=== PATIENT | female | born 1950 | race Caucasian/White ===

== ENCOUNTER 2016-07-08 17:34 | Observation (INO) | payer MEDICARE, BC ==
[~2016-07-08] VITALS: Ht 175.3 cm; Wt 88.8 kg
[~2016-07-08 17:34] MED LIST: ABIL15TA2 PO; ALBU8I INH; AMBI5TAB PO; ARIP1TAB11 PO; ASPI1TAB7 PO; ASPI81 PO; CALC250 PO; CALTTAB PO; CLON.5 PO; ESTR.3 PO; IMOD2TAB PO; LACT PO; LACTCAP7 PO; LEVEMIR SQ; LEXA10TA PO; LEXA20TA PO; LORA-474 PO; LORA1TAB PO; MAXZ25 PO; OMEP40CA2 PO; PRAV80 PO; PROT40TA PO; SIMV40 PO; SITA100 PO; VITATAB11 PO; ZOLP1TAB32 PO
[2016-07-08 17:43] VITALS: BP 136/81; PULSE 82; RESP 16; TEMP 96; O2SAT 95
[2016-07-08] MEDS ORDERED: LORA-474 PO (18:07)
[2016-07-08] MEDS ORDERED: LEVEMIR SQ (18:07)
[2016-07-08] MEDS ORDERED: ACTO15TA11 PO (18:07)
[2016-07-08] MEDS ORDERED: LEXA5TAB PO (18:07)
[2016-07-08] MEDS ORDERED: SITA50 PO (18:07)
[2016-07-08] MEDS ORDERED: PRED5PAK PO (18:07)
[2016-07-08] MEDS ORDERED: ZITHTAB PO (18:07)
[2016-07-08] MEDS ORDERED: ABIL15TA2 PO (18:07)
[2016-07-08] MEDS ORDERED: VENTAER INH (18:07)
[2016-07-08] MEDS ORDERED: ZOCO40TA PO (18:07)
[2016-07-08] MEDS ORDERED: AMOX875T PO (18:07)
--- NOTE | 2016-07-08 18:07 | PD ---
HPI . Pneumonia Chief Complaint: Respiratory Symptoms Time Seen by Provider: 17:52 Travel History International Travel<30 days: No Contact w/Intl Traveler<30days: No Traveled to known affect area: No History of Present Illness HPI Patient presents with chief complaint of pneumonia. Patient reports that she's been sick for about a week with a cough. She went to urgent care today and had a chest x-ray. She states that they called her a little while later and told her that she needed to come to the emergency department because she had pneumonia in her right lower lobe. Patient denies fever. She reports sputum production of clear sputum. She denies any dyspnea. PFSH Past Medical History Hx Anticoagulant Therapy: Yes (asa 81ng) Asthma: Yes Anxiety: Yes Depression: Yes Cancer: No Cardiovascular Problems: Yes (htn on meds prn) Cerebrovascular Accident: Yes Diabetes: Yes (type 2) Patient Takes Glucophage: No Diminished Hearing: No Endocrine: Yes Gastrointestinal Disorders: Yes (HERNIA) Genitourinary: No Headaches: No Hypertension: Yes Immune Disorder: No Implanted Vascular Access Dvce: No Musculoskeletal: No Neurologic: Yes Psychiatric: Yes Reproductive: No Respiratory: Yes (ASTHMA) Immunizations Current: Yes Seizures: Yes Influenza Vaccination: Yes Past Surgical History Appendectomy: Yes Cholecystectomy: Yes Hysterectomy: Yes Tonsillectomy: Yes Other Surgery: Yes Social History Alcohol Use: Yes (3-4 GLASSES WINE PER WEEK) Tobacco Use: No Substance Use: No Allergies-Medications (Allergen,Severity, Reaction): Coded Allergies: Latex (Verified Allergy, Intermediate, RASH, 07/08/16) Reported Meds & Prescriptions Reported Meds & Active Scripts Active Reported Actos (Pioglitazone HCl) 15 Mg Tab 15 Mg PO DAILY Januvia (Sitagliptin Phosphate) 50 Mg Tab 50 Mg PO DAILY Levemir Inj (Insulin Detemir) 1,000 unit/ 10 ML Vial 28 Units SQ HS Do not mix with any other Insulin. Zocor (Simvastatin) 40 Mg Tab 40 Mg PO DAILY Abilify (Aripiprazole) 15 Mg Tab 15 Mg PO DAILY Lexapro (Escitalopram Oxalate) 5 Mg Tab 5 Mg PO DAILY Ativan (Lorazepam) 1 Mg Tab 1 Mg PO BID Zithromax Z-Ravindra (Azithromycin) 250 Mg Dspk 250 Mg PO DIRECTED 500 MG (2 tabs) day 1, then 1 tab days 2-5. Ventolin Hfa 18 GM Inh (Albuterol Sulfate) 90 Mcg/Act Aer 1 Puff INH Q4H PRN Amoxicillin 875 Mg Tab 875 Mg PO BID Prednisone (21) 5 mg tab Dose Pack (Prednisone) 5 Mg Dspk 5 Mg PO DIRECTED Review of Systems Except as stated in HPI: all other systems reviewed are Neg Cardiovascular: Positive: Chest Pain or Discomfort Respiratory: Positive: Cough, No: Shortness of Breath Physical Exam Narrative GENERAL: This is a healthy-appearing woman in no acute distress. SKIN: Warm and dry. HEAD: Atraumatic. Normocephalic. EYES: Pupils equal and round. ENT: No nasal bleeding or discharge. Mucous membranes pink and moist. NECK: Trachea midline. CARDIOVASCULAR: Regular rate and rhythm. Heart sounds are normal. RESPIRATORY: No accessory muscle use. Lungs are clear with full air movement throughout. GASTROINTESTINAL: Abdomen soft, non-tender, nondistended. MUSCULOSKELETAL: No obvious deformities. No edema. NEUROLOGICAL: Awake and alert. No obvious cranial nerve deficits. Motor grossly within normal limits. Normal speech. PSYCHIATRIC: Appropriate mood and affect; insight and judgment normal. Data Data Last Documented VS Vital Signs Date Time Temp Pulse Resp B/P Pulse Ox O2 Delivery O2 Flow Rate FiO2 07/08/16 20:33 84 18 158/80 96 Room Air 07/08/16 19:57 21 07/08/16 17:43 96.0 Orders Complete Blood Count With Diff (07/08/16 17:57) Lactic Acid (07/08/16 17:57) Blood Culture (07/08/16 17:57) Sodium Chlor 0.9% 1000 Ml Inj (Ns 1000 M (07/08/16 19:00) Ceftriaxone Inj (Rocephin Inj) (07/08/16 19:00) Lactic Acid (07/08/16 20:00) Chlorphenir-Hydrocodone Liq (Tussionex L (07/08/16 19:15) Ketorolac Inj (Toradol Inj) (07/08/16 19:15) Basic Metabolic Panel (Bmp) (07/08/16 19:36) Chest, Single Ap (07/08/16 19:36) Methylprednisolone So Succ Inj (Solumedr (07/08/16 19:45) Albuterol-Ipratropium Neb (Duoneb Neb) (07/08/16 19:45) Admit Order (Ed Use Only) (07/08/16 21:06) Labs Laboratory Tests Test 07/08/16 07/08/16 18:23 20:29 White Blood Count 5.8 TH/MM3 Red Blood Count 4.35 MIL/MM3 Hemoglobin 13.9 GM/DL Hematocrit 40.6 % Mean Corpuscular Volume 93.4 FL Mean Corpuscular Hemoglobin 31.9 PG Mean Corpuscular Hemoglobin 34.2 % Concent Red Cell Distribution Width 12.3 % Platelet Count 227 TH/MM3 Mean Platelet Volume 7.7 FL Neutrophils (%) (Auto) 87.9 % Lymphocytes (%) (Auto) 10.2 % Monocytes (%) (Auto) 1.4 % Eosinophils (%) (Auto) 0.3 % Basophils (%) (Auto) 0.2 % Neutrophils # (Auto) 5.1 TH/MM3 Lymphocytes # (Auto) 0.6 TH/MM3 Monocytes # (Auto) 0.1 TH/MM3 Eosinophils # (Auto) 0.0 TH/MM3 Basophils # (Auto) 0.0 TH/MM3 CBC Comment DIFF FINAL Differential Comment Sodium Level 140 MEQ/L Potassium Level 4.3 MEQ/L Chloride Level 106 MEQ/L Carbon Dioxide Level 23.1 MEQ/L Anion Gap 11 MEQ/L Blood Urea Nitrogen 17 MG/DL Creatinine 1.10 MG/DL Estimat Glomerular Filtration 49 ML/MIN Rate Random Glucose 378 MG/DL Lactic Acid Level 3.2 mmol/L 3.7 mmol/L Calcium Level 9.4 MG/DL MDM Medical Decision Making Medical Screen Exam Complete: Yes Emergency Medical Condition: Yes Differential Diagnosis Differential diagnosis includes but is not limited to viral respiratory illness , bronchitis, pneumonia, allergies, CHF, asthma/COPD. Narrative Course Patient presents for treatment of pneumonia. She was actually prescribed appropriate antibiotics earlier today at urgent care. She has only had one dose of the antibiotics. I have explained to the patient that reasons for admission to the hospital would include shortness of breath or sepsis. She is not short of breath. I will check a CBC and lactic acid to rule out sepsis. CBC is normal. Lactic acid is 3.2. I will give her a liter of fluid and a dose of Rocephin, 2 g IV. I will then repeat her lactic acid level. Chest x-ray is negative to the radiologist's interpretation. Chest x-ray was independently viewed by me. Lactic acid level has actually increased. Electrolytes are unremarkable. I feel that the patient would benefit from at least an OBS stay for IV ABX and pulmonary toilet. Patient seems reluctantly agreeable. Diagnosis Primary Impression: Pneumonia Qualified Code: J18.1 - Pneumonia of right lower lobe due to infectious organism Admitting Information Admitting Physician Requests: Admit Condition: Stable Donna Barrios MD Jul 08, 2016 18:07
[2016-07-08 18:28] LABS: AUTOMATED NEUTROPHIL # 5.1 TH/MM3 (1.8-7.7); BASOPHIL % 0.2 % (0.0-2.0); EOSINOPHIL % 0.3 % (0.0-4.0); HEMATOCRIT 40.6 % (35.0-46.0); HEMO FLAGS DIFF FINAL; LYMPH % 10.2 % (9.0-44.0); LYMPHOCYTE # 0.6 TH/MM3 (1.0-4.8); MEAN CELL VOLUME 93.4 FL (80.0-100.0); MEAN CORPUSCULAR HEMOGLOBIN 31.9 PG (27.0-34.0); MEAN CORPUSCULAR HGB CONC 34.2 % (32.0-36.0); MONO % 1.4 % (0.0-8.0); NEUT % 87.9 % (16.0-70.0); PLATELET COUNT 227 TH/MM3 (150-450); RED BLOOD COUNT 4.35 MIL/MM3 (4.00-5.30); RED CELL DISTRIBUTION WIDTH 12.3 % (11.6-17.2); WHITE BLOOD COUNT 5.8 TH/MM3 (4.0-11.0)
[2016-07-08] MEDS ORDERED: cefTRIAXone INJ 2,000 MG in SODIUM CHLORIDE 0.9% INJ 100 ML IV ONE (19:00)
[2016-07-08] MEDS ORDERED: SODIUM CHLOR 0.9% 1000 ML INJ 1,000 ML IV ONE (19:00)
[2016-07-08] MEDS ORDERED: CHLORPHENIR/HYDROCOD LIQUID 8 MG/10 MG/5 ML CUP PO ONE (19:15)
[2016-07-08] MEDS ORDERED: KETOROLAC TROMETHAMINE 30 MG/ML (IVP) VIAL IV PUSH ONE (19:15)
[2016-07-08 19:26] VITALS: BP 138/76; PULSE 70; RESP 18; O2SAT 96
[2016-07-08] MEDS ORDERED: methylPREDNISolone SOD SUCC 125 MG/2 ML VIAL IVP ONE (19:45)
[2016-07-08 19:56] LABS: POTASSIUM 4.3 MEQ/L (3.5-5.1)
[2016-07-08 19:57] VITALS: O2SAT 96
[2016-07-08] MEDS: RESP: ALBUTEROL 2.5 MG/IPRATROPIUM 0.5 MG NEB (SCH) INH (19:58)
[2016-07-08 20:00] LABS: BICARBONATE 23.1 MEQ/L (21.0-32.0)
[2016-07-08 20:33] VITALS: BP 158/80; PULSE 84; RESP 18; O2SAT 96
--- NOTE | 2016-07-08 20:49 | RADHPO ---
EXAM DATE/TIME: 07/08/2016 20:07 [facility] COMPARISON: No previous studies available for comparison. INDICATIONS : Shortness of breath for one week. MEDICAL HISTORY : Pneumonia. SURGICAL HISTORY : None. ENCOUNTER: Initial ACUITY: 1 week PAIN SCORE: 110 LOCATION: Bilateral chest FINDINGS: A single view of the chest demonstrates the lungs to be symmetrically aerated without evidence of mas s, infiltrate or effusion. The cardiomediastinal contours are unremarkable. Osseous structures are intact. CONCLUSION: No acute disease. Francisco Jackman MD on July 08, 2016 at 20:47 Board Certified Radiologist. This report was verified electronically.
[2016-07-08 21:30] VITALS: BP 151/79; PULSE 90; RESP 18; O2SAT 96
[2016-07-08] MEDS ORDERED: SODIUM CHLORIDE 0.9% FLUSH 5 ML FLUSH FLUSH PRN (21:45)
[2016-07-08] MEDS ORDERED: BISACODYL 10 MG SUPP PR PRN (21:45)
[2016-07-08] MEDS ORDERED: NALOXONE HCL 0.4 MG/ML AMP IV PRN (21:45)
[2016-07-08] MEDS ORDERED: ONDANSETRON HCL 4 MG/2 ML VIAL IVP PRN (21:45)
[2016-07-08] MEDS ORDERED: guaiFENesin/DEXTROMETHORPHAN 200 MG/20 MG/10 ML CUP PO PRN (21:45)
[2016-07-08] MEDS ORDERED: SENNOSIDES 8.6 MG TAB PO PRN (21:45)
[2016-07-08] MEDS ORDERED: ACETAMINOPHEN 325 MG TAB PO PRN (21:45)
[2016-07-08] MEDS: HEPARIN SODIUM - SQ 10,000 UNITS/ML VIAL SQ SCH (22:11)
[2016-07-08] MEDS: SODIUM CHLOR 0.9% 1000 ML INJ 1,000 ML IV SCH (22:11)
[2016-07-08] MEDS ORDERED: GLUCAGON 1 MG/ML VIAL OTHER PRN (22:30)
[2016-07-08] MEDS ORDERED: DEXTROSE 50% IN WATER 50 ML VIAL(D50) IV PUSH PRN (22:30)
[2016-07-08 23:05] VITALS: BP 154/78; PULSE 86; RESP 18; O2SAT 96
[2016-07-09] VITALS (8 sets, daily range): BP systolic 113–141; BP diastolic 72–79; PULSE 76–91; RESP 18–22; TEMP 96.9–97.3; O2SAT 94–98
[2016-07-09] MEDS: INSULIN ASPART SUPPLEMENTAL SCALE SQ SCH ×4 (05:35→20:44)
[2016-07-09] MEDS: SODIUM CHLOR 0.9% 1000 ML INJ 1,000 ML IV SCH ×2 (08:59→17:37)
[2016-07-09] MEDS: SODIUM CHLORIDE 0.9% FLUSH 5 ML FLUSH FLUSH SCH ×2 (08:59→20:44)
[2016-07-09] MEDS: AZITHROMYCIN 250 MG TAB PO SCH (08:59)
[2016-07-09] MEDS: HEPARIN SODIUM - SQ 10,000 UNITS/ML VIAL SQ SCH ×2 (08:59→20:45)
[2016-07-09] MEDS: RESP: ALBUTEROL 2.5 MG/IPRATROPIUM 0.5 MG NEB (PRN) INH (12:10)
[2016-07-09] MEDS: predniSONE 5 MG TAB PO SCH (12:24)
[2016-07-09] MEDS: LORazepam 1 MG TAB PO SCH ×2 (12:24→20:45)
[2016-07-09] MEDS: ESCITALOPRAM OXALATE 10 MG TAB PO SCH (12:24)
[2016-07-09] MEDS: PIOGLITAZONE HCL 15 MG TAB PO SCH (12:24)
[2016-07-09] MEDS: PRAVASTATIN SOD 80 MG TAB PO SCH (12:24)
[2016-07-09 12:33] LABS: AUTOMATED NEUTROPHIL # 8.6 TH/MM3 (1.8-7.7); BASOPHIL # 0.3 TH/MM3 (0-0.2); BASOPHIL % 2.4 % (0.0-2.0); HEMATOCRIT 37.2 % (35.0-46.0); HEMO FLAGS DIFF FINAL; LYMPH % 8.5 % (9.0-44.0); LYMPHOCYTE # 0.9 TH/MM3 (1.0-4.8); MEAN CELL VOLUME 92.3 FL (80.0-100.0); MEAN CORPUSCULAR HEMOGLOBIN 31.8 PG (27.0-34.0); MEAN CORPUSCULAR HGB CONC 34.4 % (32.0-36.0); MONO % 5.7 % (0.0-8.0); NEUT % 83.4 % (16.0-70.0); PLATELET COUNT 211 TH/MM3 (150-450); RED BLOOD COUNT 4.03 MIL/MM3 (4.00-5.30); RED CELL DISTRIBUTION WIDTH 12.3 % (11.6-17.2); WHITE BLOOD COUNT 10.4 TH/MM3 (4.0-11.0)
[2016-07-09] MEDS: ARIPiprazole 15 MG TAB PO SCH (12:39)
[2016-07-09 12:45] LABS: CHLORIDE 110 MEQ/L (98-107); POTASSIUM 3.9 MEQ/L (3.5-5.1); SODIUM (NA) 144 MEQ/L (136-145)
[2016-07-09 12:49] LABS: ANION GAP 10 MEQ/L (5-15); BICARBONATE 23.9 MEQ/L (21.0-32.0)
[2016-07-09] MEDS ORDERED: ALBUTEROL SULFATE 90 MCG/ACT HFA 8 GM INHALER INH PRN (13:00)
[2016-07-09 13:01] LABS: ALKALINE PHOSPHATASE 62 U/L (45-117); ALT (GPT) 26 U/L (10-53); AST (GOT) 16 U/L (15-37); BLOOD UREA NITROGEN 16 MG/DL (7-18); CREATINE KINASE 199 U/L (26-192); GLOMERULAR FILTRATION RATE 60 ML/MIN (>89); TOTAL BILIRUBIN ADULT 0.3 MG/DL (0.2-1.0)
--- NOTE | 2016-07-09 13:06 | MH ---
cc: ABRAHAM TRAYLOR MD DATE OF ADMISSION: 07/08/2016 CHIEF COMPLAINT: Shortness of breath, chest pressure. HISTORY OF PRESENT ILLNESS: The patient is a 66-year-old female with past medical and surgical history significant for asthma, anxiety, depression, history of hypertension, CVA in the past, diabetes type 2, history of hernia, history of appendectomy, cholecystectomy, hysterectomy, tonsillectomy, who came to the ER at [facility] complaining of cough, congestion and also some shortness of breath and had some chest pressure and the pressure is central, does not radiate anywhere else. Denies any fever or chills. She went to the Urgent Care today and had a chest x-ray done. She stayed in the corridor a little while and was told that she needed to come to the emergency department because she had pneumonia in her right lower lobe. The patient denies any fever or chills. The patient had some sputum production of clear color. Denies any abdominal pain, nausea and vomiting, diarrhea, constipation, blood in stool, black stool or any other symptoms. Other than that nothing significant. PAST MEDICAL HISTORY, PAST SURGICAL HISTORY: As dictated above. SOCIAL HISTORY: She denies smoking. She drank in the past but she said she is not drinking anymore. Denies drug abuse. She is retired. 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 FAMILY HISTORY: Significant for mother who had diabetes mellitus. Her dad had cancer. ALLERGIES: LATEX MEDICATIONS: 1. Actos 15 milligrams p.o. daily. 2. Januvia 50 milligrams p.o. daily 3. Levemir 28 units subcutaneously 4. Zocor 40 milligrams p.o. daily 5. Abilify 15 milligrams p.o. daily 6. Lexapro 5 milligrams p.o. daily 7. Ativan 1 milligram p.o. b.i.d. 8. Ventolin HFA one puff inhalation q4 hours. 9. Amoxicillin 875 milligrams twice a day. 10. Prednisone 5 milligrams as directed. REVIEW OF SYSTEMS All review of systems are negative except for mild chest pressure. PHYSICAL EXAMINATION This is an 66-year-old female laying on the bed not in acute distress. Vital signs: Temperature is 97.1, heart rate 77, respiration 19, blood pressure 113/72, O2 saturation 97% room air. HEENT: Normocephalic, atraumatic. EOMI. PERRL. Oral mucosa moist. NECK: Supple. No visible thyromegaly or neck mass. Trachea central. CV: Regular rate and rhythm. RESPIRATORY: Clear to auscultation bilaterally. ABDOMEN: Soft, nontender. Bowel sounds audible. EXTREMITIES: No cyanosis or clubbing. Full range of motion of all extremities. NEUROLOGIC: Awake, alert, oriented x4. No focal deficits. Skin: Warm and dry. Psych: The patient is cooperative, mood and affect is normal. LABORATORY DATA Include CBC is totally unremarkable except for neutrophils 87.9 high, lymph was 0.6 low. BMP totally unremarkable except for creatinine 1.10, GFR 49 low, glucose 378 high, lactic acid 3.20 now it is 3.7, calcium 9.4, blood cultures x2 done, negative so far. Chest x-ray was done shows nothing acute. ASSESSMENT/PLAN This is a 66 year-old female who came to the ER diagnosed with: 1. Chest pressure or acute coronary syndrome. I will check cardiac enzymes x2. Cardiology consulted. Start on aspirin 325 milligrams p.o. daily. Further recommendations per cardiology. 2. History of asthma, continue home medications. 3. History of hypertension, continue home medications. 4. History of depression and anxiety, continue home medications. 5. Diabetes mellitus, ADA diet, ___ sliding scale. Check blood sugar at hs. 6. History of COPD or asthma. Continue the home medications. 7. DVT prophylaxis. Heparin 5000 units subcutaneous twice a day. 8. GI prophylaxis, Protonix 40 mg p.o. daily. We are going to manage the patient on a daily basis and make recommendations on a daily basis. Abraham Traylor MD EA/ALANNAH /11:34 AM /12:46 PM
[2016-07-09 13:22] LABS: CKMB 2.1 NG/ML (0.5-3.6)
[2016-07-09] MEDS: cefTRIAXone INJ 1,000 MG in SODIUM CHLORIDE 0.9% INJ 100 ML IV SCH (17:38)
[2016-07-09] MEDS: INSULIN DETEMIR 100 UNITS/ML VIAL SQ SCH (20:44)
[2016-07-10] VITALS (7 sets, daily range): BP systolic 124–134; BP diastolic 79–87; PULSE 68–74; RESP 16–20; TEMP 96.6–98; O2SAT 93–99
[2016-07-10] MEDS: SODIUM CHLOR 0.9% 1000 ML INJ 1,000 ML IV SCH ×3 (01:00→15:24)
[2016-07-10] MEDS: INSULIN ASPART SUPPLEMENTAL SCALE SQ SCH ×4 (06:10→21:00)
[2016-07-10 06:58] LABS: AUTOMATED NEUTROPHIL # 5.6 TH/MM3 (1.8-7.7); BASOPHIL % 0.4 % (0.0-2.0); EOSINOPHIL # 0.1 TH/MM3 (0-0.4); EOSINOPHIL % 1.1 % (0.0-4.0); HEMATOCRIT 36.5 % (35.0-46.0); HEMO FLAGS DIFF FINAL; LYMPH % 19.7 % (9.0-44.0); LYMPHOCYTE # 1.5 TH/MM3 (1.0-4.8); MEAN CELL VOLUME 93.1 FL (80.0-100.0); MEAN CORPUSCULAR HEMOGLOBIN 31.3 PG (27.0-34.0); MEAN CORPUSCULAR HGB CONC 33.6 % (32.0-36.0); NEUT % 72.8 % (16.0-70.0); PLATELET COUNT 197 TH/MM3 (150-450); RED BLOOD COUNT 3.92 MIL/MM3 (4.00-5.30); RED CELL DISTRIBUTION WIDTH 12.8 % (11.6-17.2); WHITE BLOOD COUNT 7.7 TH/MM3 (4.0-11.0)
[2016-07-10 07:13] LABS: CHLORIDE 114 MEQ/L (98-107); POTASSIUM 3.8 MEQ/L (3.5-5.1); SODIUM (NA) 148 MEQ/L (136-145)
[2016-07-10 07:18] LABS: ANION GAP 7 MEQ/L (5-15); BICARBONATE 27.4 MEQ/L (21.0-32.0)
[2016-07-10 07:42] LABS: ALKALINE PHOSPHATASE 55 U/L (45-117); ALT (GPT) 26 U/L (10-53); AST (GOT) 18 U/L (15-37); BLOOD UREA NITROGEN 18 MG/DL (7-18); GLOMERULAR FILTRATION RATE 72 ML/MIN (>89); TOTAL BILIRUBIN ADULT 0.3 MG/DL (0.2-1.0)
[2016-07-10] MEDS: PIOGLITAZONE HCL 15 MG TAB PO SCH (09:00)
[2016-07-10] MEDS: SODIUM CHLORIDE 0.9% FLUSH 5 ML FLUSH FLUSH SCH ×2 (09:00→21:00)
[2016-07-10 09:17] LABS: CKMB 2.6 NG/ML (0.5-3.6)
[2016-07-10] MEDS: ARIPiprazole 15 MG TAB PO SCH (09:21)
[2016-07-10] MEDS: PRAVASTATIN SOD 80 MG TAB PO SCH (09:21)
[2016-07-10] MEDS: predniSONE 5 MG TAB PO SCH (09:21)
[2016-07-10] MEDS: LORazepam 1 MG TAB PO SCH ×2 (09:21→22:08)
[2016-07-10] MEDS: AZITHROMYCIN 250 MG TAB PO SCH (09:21)
[2016-07-10] MEDS: ESCITALOPRAM OXALATE 10 MG TAB PO SCH (09:22)
--- NOTE | 2016-07-10 09:42 | MB ---
cc: FLO ESPINOZA MD DATE OF CONSULTATION July 10, 2016 REASON FOR CONSULTATION Atypical chest pain. HISTORY OF PRESENT ILLNESS The patient is a very pleasant 66-year-old woman who presented to the hospital with symptoms of pneumonia such as cough, shortness of breath but also noted some chest discomfort. Because of these symptoms, I was asked to consult Currently the patient is being treated with IV antibiotics empirically for pneumonia. She says that she only gets chest discomfort when she coughs. She denies any other resting chest discomfort and is currently not short of breath. She denies any other symptoms such as lightheadedness, dizziness or syncope. She says her past cardiac history is only notable for what she describes as a normal cardiac catheterization about 20 years ago. PAST MEDICAL HISTORY 1. Asthma. 2. Anxiety, depression. 3. Hypertension. 4. CVA. 5. Diabetes. MEDICATIONS Current medications - 1. Ceftriaxone IV. 2. Abilify. 3. Lexapro. 4. Ativan. 5. Actos. 6. Deltasone. 7. Januvia. 8. Zithromax. ALLERGIES LATEX. PHYSICAL EXAMINATION VITAL SIGNS: Afebrile. Pulse 68, respiratory rate 60, BP 120/81 sating 95 on 2 liters. GENERAL: A very pleasant woman, mildly flattened affect. No distress. NECK: No JVD. LUNGS: Clear to auscultation bilaterally. CARDIOVASCULAR: Regular rate and rhythm. No murmurs appreciated. ABDOMEN: Benign. EXTREMITIES: No edema. LABORATORY DATA White count 7.7, hematocrit 36.5, platelets 197. Sodium 148, potassium 3.8, chloride 114, bicarb 27.4, BUN 18, creatinine 0.79, glucose 73. Cardiac enzymes are negative x 1. EKG has not been performed but is pending. CHEST X-RAY Here is normal. IMPRESSION Chest discomfort. The patient was apparently diagnosed with pneumonia by an outside chest x-ray though her current chest x-ray here was not read as pneumonia. Her chest discomfort occurs only with coughing and this does seem noncardiac in nature. She has not had an EKG and I will have this FAXed to our office once it is complete so I can review it. Her cardiac enzymes are normal x 1. I will complete her rule out for [place] and have her follow up in my office for an outpatient stress test once her pneumonia has resolved. I will add a D-dimer to her regimen and would recommend a CTA chest to exclude pulmonary embolism if her D dimer is positive given that her chest x-ray here was not read as pneumonia. I will be available as needed. Please call with any further questions and I will be happy to see her further in the office. Thank you again for the opportunity to participate in this patient's care. MD KORINA Brink/HOSSEIN /7:59 AM /9:32 AM
--- NOTE | 2016-07-10 09:46 | HHI.PR ---
Subjective History of Present Illness Patient feel better no acute issue cardiology input noted. ok to dc home today Review of Systems Constitutional Constitutional: Fatigue Vitals/Results Intake & Output 07/09/16 07/09/16 07/10/16 15:00 23:00 07:00 Intake Total 1352 ml 700 ml Balance 1352 ml 700 ml Intake Oral 600 ml IV Total 752 ml 700 ml # Voids 5 # Bowel Movements 0 Vital Signs Vital Signs Date Time Temp Pulse Resp B/P Pulse Ox O2 Delivery O2 Flow Rate FiO2 07/10/16 08:00 96.6 69 20 124/86 98 07/10/16 00:00 96.9 68 16 128/81 95 07/09/16 21:15 97 Nasal Cannula 2.00 07/09/16 20:00 97.3 76 20 129/72 96 07/09/16 16:00 97.3 84 22 134/79 98 07/09/16 12:17 97 Nasal Cannula 2.00 07/09/16 12:00 97.2 78 20 135/78 95 CBC/BMP: 07/10/16 0630 07/10/16 0630 Lab Results Laboratory Tests Test 07/09/16 07/10/16 07/10/16 12:25 06:30 08:35 White Blood Count 10.4 TH/MM3 7.7 TH/MM3 Red Blood Count 4.03 MIL/MM3 3.92 MIL/MM3 Hemoglobin 12.8 GM/DL 12.3 GM/DL Hematocrit 37.2 % 36.5 % Mean Corpuscular Volume 92.3 FL 93.1 FL Mean Corpuscular Hemoglobin 31.8 PG 31.3 PG Mean Corpuscular Hemoglobin 34.4 % 33.6 % Concent Red Cell Distribution Width 12.3 % 12.8 % Platelet Count 211 TH/MM3 197 TH/MM3 Mean Platelet Volume 7.8 FL 7.8 FL Neutrophils (%) (Auto) 83.4 % 72.8 % Lymphocytes (%) (Auto) 8.5 % 19.7 % Monocytes (%) (Auto) 5.7 % 6.0 % Eosinophils (%) (Auto) 0.0 % 1.1 % Basophils (%) (Auto) 2.4 % 0.4 % Neutrophils # (Auto) 8.6 TH/MM3 5.6 TH/MM3 Lymphocytes # (Auto) 0.9 TH/MM3 1.5 TH/MM3 Monocytes # (Auto) 0.6 TH/MM3 0.5 TH/MM3 Eosinophils # (Auto) 0.0 TH/MM3 0.1 TH/MM3 Basophils # (Auto) 0.3 TH/MM3 0.0 TH/MM3 CBC Comment DIFF FINAL DIFF FINAL Differential Comment Sodium Level 144 MEQ/L 148 MEQ/L Potassium Level 3.9 MEQ/L 3.8 MEQ/L Chloride Level 110 MEQ/L 114 MEQ/L Carbon Dioxide Level 23.9 MEQ/L 27.4 MEQ/L Anion Gap 10 MEQ/L 7 MEQ/L Blood Urea Nitrogen 16 MG/DL 18 MG/DL Creatinine 0.93 MG/DL 0.79 MG/DL Estimat Glomerular Filtration 60 ML/MIN 72 ML/MIN Rate Random Glucose 221 MG/DL 73 MG/DL Calcium Level 9.0 MG/DL 8.6 MG/DL Total Bilirubin 0.3 MG/DL 0.3 MG/DL Aspartate Amino Transf 16 U/L 18 U/L (AST/SGOT) Alanine Aminotransferase 26 U/L 26 U/L (ALT/SGPT) Alkaline Phosphatase 62 U/L 55 U/L Total Creatine Kinase 199 U/L 235 U/L Creatine Kinase MB 2.1 NG/ML 2.6 NG/ML Creatine Kinase MB % 1.1 % 1.1 % Troponin I LESS THAN 0.02 0.03 NG/ML NG/ML Total Protein 6.5 GM/DL 5.8 GM/DL Albumin 3.2 GM/DL 2.9 GM/DL D-Dimer Quantitative (PE/DVT) 0.36 MG/L FEU Physical Exam General General Appearance: Well Developed, Well Nourished, No Acute Distress, Comfortable Eyes Eye Exam: Pupils Equal, Pupils Reactive, Sclera White, Extraocular Movement Intact Throat Throat Exam: Oral Mucosa [place] & Moist, Oral Pharynx Normal Neck Neck Exam: Neck Supple, Trachea Midline Pulmonary Resp Exam: Clear Bilaterally, Breath Sounds Equal, No Distress Cardiology CV Exam: Regular, Normal Sinus Rhythm Gastrointestinal/Abdomen GI Exam: Soft, Non-Tender, Bowel Sounds Present Musculoskeletal MS Exam: Joints Intact, Normal Tone Integumentary Skin Exam: Clear, Warm, Dry, Intact, Normal Turgor Extremeties Extremities Exam: No Edema Neurologic Neuro Exam: Alert, Awake, Oriented, Speech Clear, Moving All Extremities, No Focal Deficits VTE Prophylaxis VTE Prophylaxis Meds: Heparin PUD Prophylasis PUD Prophylaxis: Protonix Assessment/Plan Assessment/Plan ASSESSMENT/PLAN This is a 66 year-old female who came to the ER diagnosed with: 1. Chest pressure r/o acute coronary syndrome. checked cardiac enzymes x2...within normal limits.. Cardiology input noted. ok to dc home today.. Further recommendations per cardiology. 2. History of asthma, continue home medications. 3. History of hypertension, continue home medications. 4. History of depression and anxiety, continue home medications. 5. Diabetes mellitus, ADA diet, Novolog sliding scale. Check blood sugar AC & HS. 6. History of COPD or asthma. Continue the home medications. 7. DVT prophylaxis. Heparin 5000 units subcutaneous twice a day. 8. GI prophylaxis, Protonix 40 mg p.o. daily. ok to DC Home today. f/u with PCP/Cardiology 1 week. condition at discharge good. activity as tolerated diet cardiac. medicine see discharge medicine list. Discussed Condition with: Patient Abraham Gray MD Jul 10, 2016 09:46
[2016-07-10] MEDS: HEPARIN SODIUM - SQ 10,000 UNITS/ML VIAL SQ SCH ×2 (10:00→22:09)
[2016-07-10] MEDS ORDERED: ZITH250T PO (10:25)
--- NOTE | 2016-07-10 10:35 | PD.CONS ---
Provisional Diagnosis Admission Date Jul 08, 2016 at 21:11 [place] I. MDD, anxiety [place] II. Deferred [place] III. Pneumonia, HTN, CVA, DM, seizures, asthma History of Present Illness Service Psychiatry Consult Requested By Primary Care Physician Keagan Loza MD HPI The patient is a 66-year-old woman, domicile with her in [place], retired, mother of 3 daughters, with psychiatric history of anxiety and depression, 1 previous psychiatric hospitalization here at [facility] in 2015, 2 previous suicide attempts by overdose, she is on Ativan 1 mg twice a day, Lexapro 10 mg and Abilify 15 milligrams prescribed by primary psychiatrist, she has medical history of HTN, CVA, DM, seizures, asthma, she was hospitalized due to pneumonia, consulted to psychiatry for medication adjustment. On psychiatric evaluation today patient was calm and cooperative, patient explains that she feels now much better of her medical condition, patient stated that she has been stable in her current psychotropic regimen and she describes her mood right now as normal, she denies depressive symptoms, such as anhedonia, hopelessness, helplessness, low appetite, low energy, she reports good sleep, level of concentration, she denies suicidal ideation, she denies visual and auditory hallucinations, she denies acute anxiety at this moment, patient is fully oriented 3, she is future oriented, she shares that once discharged she will continue her plans to go on vacation with her to [place] and will continue taking care of her granddaughter's. The patient denies the use of illicit drugs and alcohol. Review of Systems Endocrine: DENIES: Abnorml menstrual pattern, Heat/cold intolerance, Polydipsia , Polyuria, Polyphagia Eyes: DENIES: Blurred vision, Diplopia, Eye inflammation, Eye pain, Vision loss , Photosensitivity, Double Vision Ears, nose, mouth, throat: DENIES: Tinnitus, Hearing loss, Vertigo, Nasal discharge, Oral lesions, Throat pain, Hoarseness, Ear Pain, Running Nose, Epistaxis, Sinus Pain, Toothache, Odynophagia Respiratory: DENIES: Apneas, Cough, Snoring, Wheezing, Hemoptysis, Sputum production, Shortness of breath Cardiovascular: DENIES: Chest pain, Palpitations, Syncope, Dyspnea on Exertion , PND, Lower Extremity Edema, Orthopnea, Claudication Genitourinary: DENIES: Abnormal vaginal bleeding, Dysmenorrhea, Dyspareunia, Sexual dysfunction, Urinary frequency, Urinary incontinence, Urgency, Hematuria , Dysuria, Nocturia, Vaginal discharge Musculoskeletal: DENIES: Joint pain, Muscle aches, Stiffness, Joint Swelling, Back pain, Neck pain Integumentary: DENIES: Abnormal pigmentation, Pruritus, Rash, Nail changes, Breast masses, Breast skin changes, Nipple discharge Hematologic/lymphatic: DENIES: Bruising, Lymphadenopathy Immunologic/allergic: DENIES: Eczema, Urticaria Psychiatric: DENIES: Anxiety, Confusion, Mood changes, Depression, Hallucinations, Agitation, Suicidal Ideation, Homicidal Ideation, Delusions Past Family Social History Coded Allergies: Latex (Verified Allergy, Intermediate, RASH, 07/08/16) Reported Medications Pioglitazone (Actos)15 Mg Tab15 Mg PO DAILY #30 TAB Ref 0 07/08/16 Sitagliptin (Januvia)50 Mg Tab50 Mg PO DAILY #30 TAB Ref 0 07/08/16 Insulin Detemir Inj (Levemir Inj)1,000 unit/ 10 ML Vial28 Units SQ HS Ref 0 Do not mix with any other Insulin. 07/08/16 Simvastatin (Zocor)40 Mg Tab40 Mg PO DAILY #30 TAB Ref 0 07/08/16 Aripiprazole (Abilify)15 Mg Tab15 Mg PO DAILY #30 TAB Ref 0 07/08/16 Escitalopram (Lexapro)5 Mg Tab5 Mg PO DAILY #30 TAB Ref 0 07/08/16 Lorazepam (Ativan)1 Mg Tab1 Mg PO BID Ref 0 07/08/16 Azithromycin (Zithromax Z-Ravindra)250 Mg [id number] Mg PO DIRECTED #1 DSPK Ref 0 500 MG (2 tabs) day 1, then 1 tab days 2-5. 07/08/16 Albuterol 18 GM Inh (Ventolin Hfa 18 GM Inh)90 Mcg/Act Aer1 Puff INH Q4H PRN ( SHORTNESS OF BREATH) #1 INHALER Ref 0 07/08/16 Amoxicillin 875 Mg [id number] Mg PO BID Ref 0 07/08/16 Prednisone (21) 5 mg tab Dose Pack 5 Mg Dspk5 Mg PO DIRECTED #1 DSPK Ref 0 07/08/16 Current Medications Medications (Trade) Dose Ordered Sig/Harsh Route Start Time Stop Time Status Last Admin (NS 1000 ml Inj) 1,000 ml @ 100 mls/hr Q10H IV 07/08/16 21:39 07/10/16 01:00 (NS Flush) 2 ml UNSCH PRN FLUSH 07/08/16 21:45 07/10/16 01:00 (NS Flush) 2 ml BID FLUSH 07/09/16 09:00 07/09/16 20:44 (Tylenol) 650 mg Q4H PRN PO 07/08/16 21:45 (Zofran Inj) 4 mg Q6H PRN IVP 07/08/16 21:45 (Dulcolax Supp) 10 mg DAILY PRN DE 07/08/16 21:45 (Senokot) 17.2 mg Q12H PRN PO 07/08/16 21:45 (Heparin Inj) 5,000 units Q12H SQ 07/08/16 22:00 07/09/16 20:45 Naloxone HCl 0.4 mg 0.4 mg UNSCH PRN IV 07/08/16 21:45 (Rocephin Inj/NS Inj) 100 ml @ 200 mls/hr Q24H IV 07/09/16 19:00 07/09/16 17:38 (Zithromax) 500 mg DAILY PO 07/09/16 09:00 07/10/16 09:21 (Robitussin Dm 200-20 Mg/10 ml Liq) 10 ml Q4H PRN PO 07/08/16 21:45 (D50w (Vial) Inj) 25 ml UNSCH PRN IV PUSH 07/08/16 22:30 (Glucagon Inj) 1 mg UNSCH PRN OTHER 07/08/16 22:30 (Proair Hfa Inh) 1 puff Q4H PRN INH 07/09/16 13:00 (Abilify) 15 mg DAILY PO 07/09/16 13:00 07/10/16 09:21 (Lexapro) 5 mg DAILY PO 07/09/16 13:00 07/10/16 09:22 (Levemir Inj) 28 units HS SQ 07/09/16 21:00 07/09/16 20:44 (Ativan) 1 mg BID PO 07/09/16 13:00 07/10/16 09:21 (Actos) 15 mg DAILY PO 07/09/16 13:00 07/10/16 09:00 (Deltasone) 5 mg DAILY PO 07/09/16 13:00 07/10/16 09:21 (Januvia) 50 mg DAILY PO 07/09/16 13:00 07/10/16 09:21 (Pravachol) 80 mg DAILY PO 07/09/16 13:00 07/10/16 09:21 Family History She denies Social History Patient was born and raised in [place], she was raised by her parents, she has been living in [place] for 4 years, she lives with her in [place], she has 3 daughters, 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 2) Family support Physical Exam Vital Signs Vital Signs Date Time Temp Pulse Resp B/P Pulse Ox O2 Delivery O2 Flow Rate FiO2 07/10/16 08:00 96.6 69 20 124/86 98 07/09/16 21:15 Nasal Cannula 2.00 07/09/16 08:52 21 I/O 07/09/16 07/09/16 07/10/16 08:00 16:00 00:00 Intake Total 700 ml 1352 ml Balance 700 ml 1352 ml Mental Status Examination Appearance woman, age appearing, good hygiene, calm and cooperative Speech: Unremarkable Orientation: x3 Memory: Unremarkable Thought Process: Logical Thought Content: Unremarkable Hallucination Type: None Attention and Concentration: Good Suicidal Ideation: No Homicidal Ideation: No Previous Homicide Attempts: No Judgement: WNL Affect: Good Mood: Appropriate Motor Activity: Normal gait Assessment & Plan Problem List: (1) Depression Assessment & Plan: On psychiatric evaluation today patient does not present any acute, concerning her significant symptomatology of depression, anxiety, neptali or psychosis. The patient denies suicidal or homicidal ideation. She denies visual and auditory hallucinations. Patient seems to be stable in current psychotropic regimen consisting of Lexapro 10 mg, Abilify 50 mg and Ativan 1 mg twice a day. At this moment the patient does not require any immediate psychiatric intervention, she does not meet criteria for psychiatric hospitalization. She can continue her current psychotropic regimen and she can continue her psychiatric care as an outpatient with private psychiatrist. Brief support and psychotropic education provided. No changes in current psychotropic regimen. Continue medical care as needed. ICD Code: F32.9 Assessment & Plan Estimated LOS: days Problem Qualifiers (1) Depression: Kenji Iniguez MD Jul 10, 2016 10:35
[2016-07-10 14:49] LABS: CREATINE KINASE 256 U/L (26-192)
[2016-07-10 15:02] LABS: CKMB 2.2 NG/ML (0.5-3.6)
[2016-07-10] MEDS: cefTRIAXone INJ 1,000 MG in SODIUM CHLORIDE 0.9% INJ 100 ML IV SCH (17:18)
[2016-07-10 20:52] LABS: CREATINE KINASE 235 U/L (26-192)
[2016-07-10 21:04] LABS: CKMB 1.6 NG/ML (0.5-3.6)
[2016-07-10] MEDS: INSULIN DETEMIR 100 UNITS/ML VIAL SQ SCH (22:08)
[2016-07-10] MEDS: RESP: ALBUTEROL 2.5 MG/IPRATROPIUM 0.5 MG NEB (PRN) INH (22:19)
[2016-07-11] VITALS: BP 114/66; PULSE 80; RESP 16; TEMP 97.8; O2SAT 95
[2016-07-11 04:00] VITALS: BP 131/83; PULSE 71; RESP 16; TEMP 97.2; O2SAT 96
[2016-07-11] MEDS: INSULIN ASPART SUPPLEMENTAL SCALE SQ SCH (06:34)
--- NOTE | 2016-07-11 06:53 | HHI.PR ---
Subjective History of Present Illness Patient feel better no acute issue cardiology input noted. ok to dc home today d/w JAYCOB Pedersen. Review of Systems Constitutional Constitutional: Fatigue Vitals/Results Intake & Output 07/10/16 07/10/16 07/11/16 15:00 23:00 07:00 Intake Total 790 ml 520 ml Balance 790 ml 520 ml Intake Oral 790 ml 520 ml # Voids 2 3 # Bowel Movements 0 Vital Signs Vital Signs Date Time Temp Pulse Resp B/P Pulse Ox O2 Delivery O2 Flow Rate FiO2 07/11/16 04:00 97.2 71 16 131/83 96 07/11/16 00:00 97.8 80 16 114/66 95 07/10/16 21:00 71 07/10/16 20:00 98.0 70 20 134/87 93 07/10/16 19:54 94 07/10/16 16:00 97.2 69 20 127/87 94 07/10/16 12:00 97.7 74 20 130/79 95 07/10/16 08:00 96.6 69 20 124/86 98 07/10/16 08:00 99 Nasal Cannula 2.00 CBC/BMP: 07/10/16 0630 07/10/16 0630 Lab Results Laboratory Tests Test 07/10/16 07/10/16 07/10/16 08:35 13:48 20:10 D-Dimer Quantitative (PE/DVT) 0.36 MG/L FEU Total Creatine Kinase 235 U/L 256 U/L 235 U/L Creatine Kinase MB 2.6 NG/ML 2.2 NG/ML 1.6 NG/ML Creatine Kinase MB % 1.1 % 0.9 % 0.7 % Troponin I 0.03 NG/ML LESS THAN 0.02 LESS THAN 0.02 NG/ML NG/ML Physical Exam General General Appearance: Well Developed, Well Nourished, No Acute Distress, Comfortable Eyes Eye Exam: Pupils Equal, Pupils Reactive, Sclera White, Extraocular Movement Intact Throat Throat Exam: Oral Mucosa [place] & Moist, Oral Pharynx Normal Neck Neck Exam: Neck Supple, Trachea Midline Pulmonary Resp Exam: Clear Bilaterally, Breath Sounds Equal, No Distress Cardiology CV Exam: Regular, Normal Sinus Rhythm Gastrointestinal/Abdomen GI Exam: Soft, Non-Tender, Bowel Sounds Present Musculoskeletal MS Exam: Joints Intact, Normal Tone Integumentary Skin Exam: Clear, Warm, Dry, Intact, Normal Turgor Extremeties Extremities Exam: No Edema Neurologic Neuro Exam: Alert, Awake, Oriented, Speech Clear, Moving All Extremities, No Focal Deficits VTE Prophylaxis VTE Prophylaxis Meds: Heparin PUD Prophylasis PUD Prophylaxis: Protonix Assessment/Plan Assessment/Plan ASSESSMENT/PLAN This is a 66 year-old female who came to the ER diagnosed with: 1. Chest pressure r/o acute coronary syndrome. checked cardiac enzymes x2...within normal limits.. Cardiology input noted. ok to dc home today.. Further recommendations per cardiology. 2. History of asthma, continue home medications. 3. History of hypertension, continue home medications. 4. History of depression and anxiety, continue home medications. 5. Diabetes mellitus, ADA diet, Novolog sliding scale. Check blood sugar AC & HS. 6. History of COPD or asthma. Continue the home medications. 7. DVT prophylaxis. Heparin 5000 units subcutaneous twice a day. 8. GI prophylaxis, Protonix 40 mg p.o. daily. ok to DC Home today. f/u with PCP/Cardiology 1 week. condition at discharge good. activity as tolerated diet cardiac. medicine see discharge medicine list. Discussed Condition with: Patient Abraham Gray MD Jul 11, 2016 06:53
[2016-07-11 08:00] VITALS: BP 143/90; PULSE 61; RESP 18; TEMP 98; O2SAT 96
--- NOTE | 2016-07-11 16:51 | EKG ---
Date Performed: 07/10/2016 Time Performed: 08:34:10 PTAGE: 66 years EKG: Sinus rhythm . Possible inferior infarct - age undetermined Possible anterior infarct - age undetermined Lateral S T-T changes are nonspecific Low QRS voltages in precordial leads Compared to prior tracing no signifi cant change Abnormal ECG PREVIOUS TRACING : 03/19/2015 11.34 DOCTOR: Violeta Felix Interpretating Date/Time 07/11/2016 16:49:54
--- NOTE | 2016-07-20 06:19 | MD ---
cc: ABRAHAM TRAYLOR MD ADMISSION DATE: 07/08/2016 DISCHARGE DATE: 07/11/2016 DISPOSITION Okay to discharge patient home. CONDITION AT THE TIME OF DISCHARGE Satisfactory. ACTIVITY As tolerated. DIET Cardiac diet, ADA 1800 calorie diet. ALLERGY TO LATEX. DISCHARGE MEDICATIONS 1. Zithromax 5 mg p.o. daily for 7 days. 2. Albuterol nebulization. 3. Albuterol inhaler one puff inhalation every 4 hours. 4. Amoxicillin 875 mg twice a day. 5. Abilify 50 mg p.o. daily. 6. Lexapro 5 mg p.o. daily. 7. Levemir 28 units at bedtime. 8. Lorazepam 1 mg p.o. b.i.d. 9. Actos 50 mg p.o. daily. 10. Prednisone 5 mg p.o. as directed. 11. Simvastatin 40 mg p.o. daily. 12. Januvia 50 mg p.o. daily. FOLLOWUP The patient advised to follow up with PCP and Cardiology on one week. ADMISSION DIAGNOSIS Chest pain rule out acute coronary syndrome. DISCHARGE DIAGNOSES 1. Chest pain resolved. Acute coronary syndrome ruled out. Okay to discharge per Cardiology. 2. Asthma. 3. Hypertension. 4. Depression. 5. Anxiety. 6. . 7. History of COPD and asthma. HOSPITAL COURSE This is a 66-year-old female admitted with chest pressure diagnosed with noncardiac chest pain. Cardiology is seeing the patient. The patient remained stable. No acute event happened. The patient's blood cultures x 2 negative so far. The patient had cardiac enzymes, troponin I x 3 done which are less than 0.02. The patient remained stable. Further details in the medical record. Abraham Traylor MD EA/HOSSEIN /12:20 PM /6:09 AM
== END 2016-07-11 09:47 | disposition home or self-care (01) ==
LOC: PHED 17:34 → PHEDA 21:11 → PH3B 23:12
PROVIDERS: ADMIT Family Medicine; ATTEND Family Medicine
DX: R07.89 Other chest pain (principal); J44.0 Chronic obstructive pulmonary disease with (acute) lower respiratory infection; J45.909 Unspecified asthma, uncomplicated; I10 Essential (primary) hypertension; F32.9 Major depressive disorder, single episode, unspecified; E11.9 Type 2 diabetes mellitus without complications; Z79.84 Long term (current) use of oral hypoglycemic drugs; Z86.73 Personal history of transient ischemic attack (TIA), and cerebral infarction without residual deficits; Z90.49 Acquired absence of other specified parts of digestive tract
CPT/HCPCS: 71010; 80048; 80053; 82550; 82552; 82948; 83605; 84484; 85025; 85379; 87040; 93005; 94640; 94664; 96365; 96375; 99285; G0378; J0696; J1644; J1815; J1885; J2930; J7030; J7512